=== PATIENT | female | born 1950 | race Caucasian/White ===

== ENCOUNTER 2016-08-16 13:09 | Outpatient (RCR) | payer OTHER | END 2016-08-19 | disposition home or self-care (01) | LOC: M PT 13:09 | PROVIDERS: ATTEND Surgery | DX: Z51.89 Encounter for other specified aftercare (principal); I89.0 Lymphedema, not elsewhere classified | CPT/HCPCS: 97162; G8978; G8979 ==

== ENCOUNTER 2016-09-18 09:12 | Outpatient (RCR) | payer OTHER | END 2016-09-19 | disposition home or self-care (01) | LOC: M PT 09:12 | PROVIDERS: ATTEND Surgery | DX: Z51.89 Encounter for other specified aftercare (principal); I89.0 Lymphedema, not elsewhere classified | CPT/HCPCS: 97140; G8978; G8979 ==

== ENCOUNTER 2016-10-10 12:45 | Outpatient (RCR) | payer OTHER | END 2016-10-19 | disposition home or self-care (01) | LOC: M PT 12:45 | PROVIDERS: ATTEND Surgery | DX: Z51.89 Encounter for other specified aftercare (principal); I89.0 Lymphedema, not elsewhere classified | CPT/HCPCS: 97140; G8978; G8979; G8980 ==

== ENCOUNTER 2017-04-10 13:47 | Outpatient (RCR) | payer OTHER | END 2017-04-21 | LOC: M PT 13:47 | DX: Z51.89 Encounter for other specified aftercare (principal); I89.0 Lymphedema, not elsewhere classified | CPT/HCPCS: 97163 ==

== ENCOUNTER 2017-07-09 10:46 | Outpatient (RCR) | payer OTHER | END 2017-07-20 | LOC: M PT 10:46 | DX: I87.2 Venous insufficiency (chronic) (peripheral) (principal) | CPT/HCPCS: 97140 ==

== ENCOUNTER 2019-01-19 14:33 | Emergency (ER) | payer MEDICARE, OTHER ==
[~2019-01-19] VITALS: Ht 165.1 cm; Wt 159.1 kg
[2019-01-19] MEDS ORDERED: KETOROLAC 30 MG/ML VIAL (J1885) IV ONE (16:30)
[2019-01-19 17:16] LABS: HEMATOCRIT 25.5 % (36.0-47.0); HEMOGLOBIN 7.2 g/dl (12.0-15.5); MEAN CORPUSCULAR HEMOGLOBIN 24.5 pg (27.0-33.0); MEAN CORPUSCULAR HGB CONC 28.2 g/dl (32.0-36.5); MEAN CORPUSCULAR VOLUME 86.7 fl (80.0-96.0); PLATELET COUNT, AUTOMATED 318 10^3/uL (150-450); RED BLOOD COUNT 2.94 10^6/uL (4.00-5.40); WHITE BLOOD COUNT 10.7 10^3/uL (4.0-10.0)
--- NOTE | 2019-01-19 17:29 | REPVR ---
PROCEDURE INFORMATION: Exam: US Duplex Left Lower Extremity Veins, Limited Exam date and time: 01/19/2019 5:11 PM Clinical history: 68 years old, female; Pain; Leg, lower; Left; Additional info: Left leg swelling, redness TECHNIQUE: Imaging protocol: Real-time Duplex ultrasound of the Left Lower Extremity with 2-D dao scale, color Doppler flow and spectral waveform analysis with image documentation. Limited exam focused on the left lower extremity veins. COMPARISON: No relevant prior studies available. FINDINGS: Left deep veins: Unremarkable. The common femoral, femoral, popliteal and posterior tibial veins are patent without thrombus. Normal compressibility, augmentation response and Doppler waveforms. Left superficial veins: Unremarkable. Saphenofemoral junction is patent without thrombus. Soft tissues: Unremarkable. IMPRESSION: No sonographic evidence of deep vein thrombosis. Electronically signed by: Lowell Harmon On 01/19/2019 17:29:09 PM
[2019-01-19 17:31] LABS: C REACTIVE PROTEIN QUANTITATIV 3.34 MG/DL (0.00-0.30)
[2019-01-19 17:50] LABS: ERYTHROCYTE SEDIMENTATION RATE > 140 mm/hr (0-30)
[2019-01-19 18:42] LABS: CK-MB VALUE MASS < 1.0 NG/ML (<3.6); CPK CREATINE PHOSPHOKINASE 38 U/L (26-192); MB/CK RELATIVE INDEX 2.63 (< OR =4); TROPONIN I < 0.02 NG/ML (< 0.10)
[2019-01-19] MEDS ORDERED: cefTRIAXone SOD 1 GM in D5W MINI-BAG PLUS 50 ML IV ONE (20:15)
--- NOTE | 2019-01-19 21:05 | ECGEPIP ---
[facility] - ED Test Date: 2019-01-19 Pat Name: FELICITAS BELTRAN Department: Room: - Gender: Female [employer]rer: kb : 1950 Requested By: REGLA Arguello PA-C Order Number: [id number] Reading MD: Cherri Martinez Measurements Intervals [place] Rate: 68 P: -4 RI: 173 QRS: 33 QRSD: 98 T: 23 QT: 401 QTc: 428 Interpretive Statements SINUS RHYTHM NO PRIOR Electronically Signed on 01-19-2019 21:05:26 EDT by Cherri Martinez
[2019-01-19] MEDS ORDERED: ONDANSETRON 4 MG ORAL DISINTEGRATING TAB (Q0162 PER 1MG) PO ONE (21:45)
[2019-01-20 00:16] VITALS: BP 146/76
[2019-01-20] MEDS ORDERED: BACT800T5 PO (00:29)
[2019-01-20 01:53] LABS: HEMATOCRIT 28.6 % (36.0-47.0); HEMOGLOBIN 8.4 g/dl (12.0-15.5); MEAN CORPUSCULAR HEMOGLOBIN 25.6 pg (27.0-33.0); MEAN CORPUSCULAR HGB CONC 29.4 g/dl (32.0-36.5); MEAN CORPUSCULAR VOLUME 87.2 fl (80.0-96.0); PLATELET COUNT, AUTOMATED 295 10^3/uL (150-450); RED BLOOD COUNT 3.28 10^6/uL (4.00-5.40); WHITE BLOOD COUNT 10.6 10^3/uL (4.0-10.0)
== END 2019-01-20 03:06 | disposition home or self-care (01) ==
LOC: M ED 14:33
DX: L03.116 Cellulitis of left lower limb (principal); I89.0 Lymphedema, not elsewhere classified; D64.9 Anemia, unspecified; E11.9 Type 2 diabetes mellitus without complications; C54.1 Malignant neoplasm of endometrium; M51.37 Other intervertebral disc degeneration, lumbosacral region; J45.909 Unspecified asthma, uncomplicated; Z91.018 Allergy to other foods
CPT/HCPCS: 36415; 36430; 80047; 82550; 82553; 84484; 85027; 85652; 86140; 86850; 86900; 86901; 86920; 87040; 93005; 93971; 96374; 96375; 99285; J0696; J1885; P9016; Q0162